=== PATIENT | male | born 1985 | race Hispanic/Latino ===

== ENCOUNTER 2020-01-08 16:19 | Emergency (ER) | payer OTHER ==
[~2020-01-08] VITALS: Ht 180.3 cm; Wt 86.2 kg
[2020-01-08] MEDS ORDERED: NAPROSYN500 MG PO (16:58)
[2020-01-08] MEDS ORDERED: LIDODERM1 EACH TD (16:58)
[2020-01-08] MEDS ORDERED: LORAZEPAM1 MG PO (16:58)
== END 2020-01-08 17:23 | disposition home or self-care (01) ==
LOC: ED 16:19
DX: S39.012A Strain of muscle, fascia and tendon of lower back, initial encounter (principal); X50.9XXA Other and unspecified overexertion or strenuous movements or postures, initial encounter; Y99.0 Civilian activity done for income or pay
CPT/HCPCS: 96372; 99283-25; J1885

== ENCOUNTER 2024-12-05 21:45 | Emergency (ER) | payer SELFPAY ==
[~2024-12-05] VITALS: Ht 180.3 cm; Wt 94.0 kg
[~2024-12-05 21:45] MED LIST: LIDODERM1 EACH TD; LORAZEPAM1 MG PO; NAPROSYN500 MG PO
[2024-12-05 21:58] LABS: BASOPHILS 0.9 % (0.2-1.2); EOSINOPHILS 4.0 % (0.8-7.0); LYMPHOCYTES 33.3 % (21.8-53.1); MCH 30.6 PG (25.7-32.2); MCHC 34.9 g/dL (32.3-36.5); MCV 87.8 fL (79.0-92.2); MONOCYTES 6.8 % (5.3-12.2); NEUTROPHILS 54.5 % (34.0-67.9); RBC 4.90 M/uL (4.63-6.08)
[2024-12-05] MEDS ORDERED: LACTATED RINGER'S 1,000 ML IV ONE (22:00)
[2024-12-05] MEDS ORDERED: TRANEXAMIC ACID IN NACL,ISO-OS 1,000 MG/100 ML PIGGYBACK IV ONE (22:00)
[2024-12-05] MEDS ORDERED: CEFAZOLIN SODIUM 3 GM/30 ML SYR IV ONE (22:00)
[2024-12-05] MEDS ORDERED: DIPHTH,PERTUSS(ACELL),TET VAC 0.5 ML SYRINGE IM ONE (22:00)
[2024-12-05] MEDS ORDERED: MORPHINE SULFATE 4 MG/ML VIAL IV ONE (22:00)
[2024-12-05 22:14] LABS: ALCOHOL, MEDICAL <3 ng/dL (<3); ALT (SGPT) 36 U/L (14-59); AST (SGOT) 19 U/L (15-37); GLOMERULAR FILTRATION RATE,EST 111 mL/min (>60); PROTEIN, TOTAL 7.7 g/dL (6.4-8.2); UREA NITROGEN 21 mg/dL (7-18)
[2024-12-05] MEDS ORDERED: CEFAZOLIN SODIUM 1 GM/10 ML SYR ONE (22:15)
[2024-12-05] MEDS ORDERED: CEFAZOLIN SODIUM 2 GM/20 ML SYR ONE (22:15)
[2024-12-05 22:32] LABS: ABO B; ANTIBODY SCREEN NEGATIVE; RH POSITIVE
[2024-12-05 23:06] LABS: BLOOD/HGB, URINE TRACE-I (Negative); KETONE, URINE NEGATIVE (Negative); LEUK ESTERASE, URINE NEGATIVE (negative); NITRITE, URINE NEGATIVE (negative)
[2024-12-05 23:12] LABS: EPITHELIAL CELLS, URINE SQUAMOUS 1+ /lpf (0-1+)
[2024-12-05 23:13] LABS: BACTERIA, URINE RARE /hpf (negative); CASTS, URINE NONE SEEN \\lpf; CRYSTALS, URINE NONE SEEN (0-1+); REFLEX CULTURE, URINE No (No)
[2024-12-05] MEDS ORDERED: HYDROCODON-ACE1 EA10 PO (23:41)
[2024-12-05] MEDS ORDERED: AMOX TR-K CLV1 EAC1 PO (23:43)
[2024-12-06] MEDS ORDERED: HYDROCODONE BIT/ACETAMINOPHEN 5/325 MG 1 TAB HOME.PACK PO ONE (00:30)
[2024-12-06 00:55] VITALS: BP 141/91
== END 2024-12-06 00:55 | disposition home or self-care (01) ==
LOC: ED 21:45
PROVIDERS: Family Medicine
DX: S21.139A Puncture wound without foreign body of unspecified front wall of thorax without penetration into thoracic cavity, initial encounter (principal); X99.1XXA Assault by knife, initial encounter; Z79.899 Other long term (current) drug therapy
CPT/HCPCS: 36415; 71045; 71260; 74177; 80053; 81001; 85025; 86850; 86900; 86901; 90715; A9270; G0480; J0690; J2270; J7121; Q9967

== ENCOUNTER 2024-12-20 21:36 | Emergency (ER) | payer SELFPAY ==
[~2024-12-20] VITALS: Ht 180.3 cm; Wt 91.0 kg
[~2024-12-20 21:36] MED LIST changes: +AMOX TR-K CLV1 EAC1 PO; +HYDROCODON-ACE1 EA10 PO
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
[2024-12-21 00:52] VITALS: BP 120/77
== END 2024-12-21 00:54 | disposition home or self-care (01) ==
LOC: ED 21:36
DX: B34.9 Viral infection, unspecified (principal); F41.9 Anxiety disorder, unspecified; S21.119D Laceration without foreign body of unspecified front wall of thorax without penetration into thoracic cavity, subsequent encounter; W26.9XXD Contact with unspecified sharp object(s), subsequent encounter
CPT/HCPCS: 87502; 99283; U0002

== ENCOUNTER 2025-03-07 14:05 | Emergency (ER) | payer OTHER ==
[~2025-03-07] VITALS: Ht 180.3 cm; Wt 94.0 kg
[2025-03-07] MEDS ORDERED: HYDROCODONE/APAP 10/325 1 TAB PO ONE (15:15)
[2025-03-07] MEDS ORDERED: HYDROCODON-ACE1 EAC8 PO (15:23)
[2025-03-07] MEDS ORDERED: AMOX TR-K CLV1 EAC1 PO (15:23)
[2025-03-07 15:44] VITALS: BP 140/100
== END 2025-03-07 15:45 | disposition home or self-care (01) ==
LOC: ED 14:05
DX: S62.336A Displaced fracture of neck of fifth metacarpal bone, right hand, initial encounter for closed fracture (principal); S62.344A Nondisplaced fracture of base of fourth metacarpal bone, right hand, initial encounter for closed fracture; W21.89XA Striking against or struck by other sports equipment, initial encounter; Z79.899 Other long term (current) drug therapy
CPT/HCPCS: 29125; 73110; 73130; 99283; A9270